=== PATIENT | male | born 1980 ===

== ENCOUNTER 2017-03-31 10:09 | Emergency (ER) | payer OTHER ==
--- NOTE | 2017-03-31 10:44 | UC ---
Ear Complaint HPI - HPI Summary HPI Summary: L ear suddenly felt plugged a few days ago when pt was trying to clean ears with a swab. Went to [place] and was told his ears are full of wax. Has tried OTC drops without relief. - History of Current Complaint Chief Complaint: UCEar Stated Complaint: PLUGGED EARS Time Seen by Provider: 03/31/17 10:35 Hx Obtained From: Patient Onset/Duration: Gradual Onset, Still Present Severity Initially: Mild Severity Currently: Mild Aggravating Factors: Nothing Alleviating Factors: Nothing Associated Signs/Symptoms: Positive: Hearing Loss - Allergies/Home Medications Allergies/Adverse Reactions: Allergies Allergy/AdvReac Type Severity Reaction Status Date / Time No Known Allergies Allergy Verified 03/31/17 10:28 Home Medications: Home Medications Melatonin 3 mg PO BEDTIME PRN 03/31/17 [History Confirmed 03/31/17] PMH/Surg Hx/FS Hx/Imm Hx Endocrine History Of: Denies: Diabetes, Thyroid Disease Cardiovascular History Of: Denies: Cardiac Disorders, Hypertension Respiratory History Of: Denies: COPD, Asthma - Surgical History Surgical History: None - Family History Known Family History: Positive: Hypertension - Social History Occupation: Student Alcohol Use: Weekly Substance Use Type: None Smoking Status (MU): Light Every Day Tobacco Smoker Review of Systems Constitutional: Negative Skin: Negative Eyes: Negative ENT: Ear Ache - bilat Respiratory: Negative Cardiovascular: Negative Gastrointestinal: Negative Genitourinary: Negative Motor: Negative Neurovascular: Negative Musculoskeletal: Negative Neurological: Negative Psychological: Negative All Other Systems Reviewed And Are Negative: Yes Physical Exam Triage Information Reviewed: Yes Appearance: Well-Appearing, No Pain Distress, Obese Vital Signs: Initial Vital Signs Temp 97.6 F 03/31/17 10:26 Pulse 89 03/31/17 10:26 Resp 18 03/31/17 10:26 BP 165/94 03/31/17 10:26 Pulse Ox 98 03/31/17 10:26 Vital Signs Reviewed: Yes Eye Exam: Normal Eyes: Positive: Conjunctiva Clear ENT: Positive: Hearing grossly normal, TMs normal - post-flush, Other: - bilat cerumen impaction. Negative: Pharyngeal erythema, Nasal congestion, Nasal drainage Dental Exam: Normal Neck exam: Normal Neck: Positive: Supple, Nontender, No Lymphadenopathy Respiratory Exam: Normal Respiratory: Positive: Chest non-tender, Lungs clear, Normal breath sounds, No respiratory distress, No accessory muscle use Cardiovascular Exam: Normal Cardiovascular: Positive: RRR, No Murmur Musculoskeletal Exam: Normal Neurological Exam: Normal Neurological: Positive: Alert Psychological Exam: Normal Skin Exam: Normal Ear Complaint Course/Dx - Differential Dx/Diagnosis Provider Diagnoses: bilat cerumen impaction Discharge - Discharge Plan Condition: Stable Disposition: HOME Patient Education Materials: Cerumen Impaction (ED) Referrals: Jim Hollingsworth MD [Primary Care Provider] - Additional Instructions: Come back if you have increasing pain, fever, or drainage.
== END 2017-03-31 11:02 | disposition home or self-care (01) ==
LOC: UCEAST 10:09
DX: H61.23 Impacted cerumen, bilateral (principal); F17.200 Nicotine dependence, unspecified, uncomplicated
CPT/HCPCS: 99203; G0463

== ENCOUNTER 2017-04-13 10:57 | Emergency (ER) | payer OTHER ==
--- NOTE | 2017-04-13 12:52 | UC ---
Skin Complaint HPI - HPI Summary HPI Summary: Patient presents with complaints of red, raised painful area on the left side of his neck x 3-4 days. He states that originally he thought he had an ingrown hair, and he squeeezed it and some puss came out of it. But then he reports that he kept squeezing it and it got bigger, and more painful, but stopped draining. He denies any pain in his mouth, or throat and states he can ear and drink without any problems. He denies any fever or chills, nausea or vomiting. - History of Current Complaint Hx Obtained From: Patient Onset/Duration: Gradual Onset, Lasting Days Skin Exposure Onset/Duration: Days Ago Timing: Constant Onset Severity: Mild Current Severity: Moderate Location: Discrete - left side of neck. lower aspect of chin. Aggravating: Touch Alleviating: Nothing Associated Signs & Symptoms: Positive: Negative <Gavi Casper - Last Filed: 04/13/17 12:47> <Key Costello - Last Filed: 04/13/17 13:00> - History of Current Complaint Chief Complaint: UCSkin Time Seen by Provider: 04/13/17 12:41 Stated Complaint: RED AREA ON NECK - Allergy/Home Medications Allergies/Adverse Reactions: Allergies Allergy/AdvReac Type Severity Reaction Status Date / Time No Known Allergies Allergy Verified 03/31/17 10:28 Review of Systems Skin: Other - red, raised bump on left side of neck. All Other Systems Reviewed And Are Negative: Yes <Gavi Casper - Last Filed: 04/13/17 12:47> PMH/Surg Hx/FS Hx/Imm Hx Previously Healthy: Yes - Surgical History Surgical History: Yes Surgery Procedure, Year, and Place: t/a - Family History Known Family History: Positive: Hypertension - Social History Alcohol Use: Weekly Substance Use Type: None Smoking Status (MU): Light Every Day Tobacco Smoker <Gavi Casper - Last Filed: 04/13/17 12:47> Physical Exam Triage Information Reviewed: Yes Appearance: Well-Appearing Vital Signs: Initial Vital Signs Temp 98.5 F 04/13/17 11:20 Pulse 101 04/13/17 11:20 Resp 18 04/13/17 11:20 BP 182/99 04/13/17 11:20 Pulse Ox 100 04/13/17 11:20 Vital Signs Reviewed: Yes Eye Exam: Normal ENT Exam: Normal Dental Exam: Normal Neck exam: Other - 3 cm area of induration noted on superior aspect of lateral neck, no area of flucuaance noted, tenderness on palpation. Respiratory Exam: Normal Cardiovascular Exam: Normal Cardiovascular: Positive: RRR <CasperGavi - Last Filed: 04/13/17 12:47> Vital Signs: Initial Vital Signs Temp 98.5 F 04/13/17 11:20 Pulse 101 04/13/17 11:20 Resp 18 04/13/17 11:20 BP 182/99 04/13/17 11:20 Pulse Ox 100 04/13/17 11:20 <Key Costello - Last Filed: 04/13/17 13:00> Course/Dx - Course Course Of Treatment: Patient presents with 3-4 day onset red, raised area on the left side of his neck, there is no flucuance on palpation. He was started on kelex and encouraged to stop trying to squeeze it. Apply warm compresses. F/ u if symtpoms worsen. - Differential Diagnoses - Skin Complaint Differential Diagnoses: Cellulitis - Diagnoses Provider Diagnoses: cellulitis <Gavi Casper - Last Filed: 04/13/17 12:47> Discharge <Gavi Casper - Last Filed: 04/13/17 12:47> <Key Costello - Last Filed: 04/13/17 13:00> - Discharge Plan Condition: Stable Disposition: HOME Prescriptions: Cephalexin CAP* [Keflex CAP*] 500 mg PO QID #40 cap Patient Education Materials: Cellulitis (ED) Referrals: No Primary Care Phys,NOPCP [Primary Care Provider] - Felipe Gonzáles MD [Medical Doctor] - Attestation Statement User Type: Provider - I was available for consult. This patient was seen by the [facility]. The patient was not presented to, seen by, or examined by me. -Gagandeep <Key Costello - Last Filed: 04/13/17 13:00>
== END 2017-04-13 13:00 | disposition home or self-care (01) ==
LOC: UCEAST 10:57
DX: L03.221 Cellulitis of neck (principal); Z72.0 Tobacco use
CPT/HCPCS: 99212; G0463